=== PATIENT | male | born 1955 | race Caucasian/White ===

== ENCOUNTER 2018-01-19 08:50 | Day surgery (SDC) | payer MEDICARE ==
[2018-01-19 10:43] LABS: Anion Gap 14 mmol/L (10-20); BUN (Urea Nitrogen) 18 mg/dL (8.4-25.7); Calc. Creatinine Clearance 0 mL/min (70-130); Calcium 9.2 mg/dL (7.8-10.44); Carbon Dioxide 30 mmol/L (22-29); Chloride 94 mmol/L (98-107); Estimated GFR-MDRD 63; Glucose 91 mg/dL (70-105); Potassium 3.6 mmol/L (3.5-5.1); Sodium 134 mmol/L (136-145)
[2018-01-19] MEDS ORDERED: Lidocaine 1% w/Epinephrine 1:100K 30 ML VIAL ONE (11:08)
[2018-01-19] MEDS ORDERED: Bacitracin Zinc Ointment 30 gm TUBE ONE (11:08)
[2018-01-19] MEDS ORDERED: Fentanyl 100 MCG/2 ML VIAL ONE (11:48)
[2018-01-19] MEDS ORDERED: Dexamethasone 20 MG/5 ML VIAL ONE (14:38)
[2018-01-19] MEDS ORDERED: PROPOFOL 200 MG/20 ML VIAL ONE (14:38)
[2018-01-19] MEDS ORDERED: Lidocaine 1% PF 5 ML VIAL ONE (14:38)
[2018-01-19] MEDS ORDERED: PHENYLEPHRINE-NS 100 MCG/ML 10 ML SYRINGE ONE (14:38)
[2018-01-19] MEDS ORDERED: Ondansetron HCl/PF 4 MG/2 ML Vial ONE (14:38)
[2018-01-19] MEDS ORDERED: Succinylcholine Chloride 20 MG/ML 10 ml SYRINGE FS ONE (14:38)
--- NOTE | 2018-01-20 13:57 | OP ---
PREOPERATIVE DIAGNOSIS: Left parotid mass. POSTOPERATIVE DIAGNOSIS: Left parotid mass. PROCEDURE PERFORMED: Left superficial parotidectomy with intraoperative facial nerve monitor. SURGEON: Dr. Chris Tyson. WOOL WASHING MACHINE OPERATOR: KUMAR Harrington. ANESTHESIA: General endotracheal anesthesia. ESTIMATED BLOOD LOSS: 50 mL COMPLICATIONS: None. DESCRIPTION OF PROCEDURE: The patient was taken to the operating room and placed supine on the table . General endotracheal anesthesia was obtained by the Anesthesia staff. Tube was secured in the rig ht lower lip. The head was gently tilted to the right to expose the left parotid gland area. Follow ing this, a shoulder roll was placed. Patient was prepped and draped in standard surgical fashion. The intraoperative facial nerve monitors were inserted into the orbicularis theresa and the orbicularis oculi muscles and was tested and remained on throughout the procedure. Following this, a modified Bl air incision was made, staying just anterior to the preauricular crease and extending around the wanda obe approximately 1 cm and then extending onto the neck approximately 2 cm below the angle of the man dible. Following this, subplatysmal flaps were elevated and retracted anteriorly. The mass was note d to be at the inferior margin of the parotid gland on this left side. The inferior division of the facial nerve was identified in the periphery and was dissected in a retrograde fashion until the bin cent inferior branch was identified. Keeping these dissected out, the mass was then removed with its entirety from the superficial load of the parotid gland. Following this, a drain was placed. Wound was irrigated and the wound was closed using 3-0 Monocryl stitches and 4-0 Monocryl stitches. The s kin was then closed using yesenia. The patient tolerated the procedure well.
--- NOTE | 2018-01-20 13:57 | EKG ---
Test Reason : PREOP Blood Pressure : / mmHG Vent. Rate : 065 BPM Atrial Rate : 065 BPM P-R Int : 228 ms QRS Dur : 096 ms QT Int : 464 ms P-R-T Axes : 045 055 097 degrees QTc Int : 482 ms Sinus rhythm with 1st degree A-V block Cannot rule out Anterior infarct , age undetermined Abnormal ECG Confirmed by KIMBERLY LANE ([id number]) on 01/20/2018 1:57:12 PM Referred By: BIANCA Confirmed By:KIMBERLY LANE
== END 2018-01-19 16:38 | disposition home or self-care (01) ==
LOC: SDC 08:50
PROVIDERS: ATTEND Otolaryngology Plastic Surgery within the Head & Neck
PROC: 0CB90ZZ Excision of Left Parotid Gland, Open Approach (ICD-10-PCS; principal; 2018-01-19)
DX: K11.8 Other diseases of salivary glands (principal); I10 Essential (primary) hypertension; E78.00 Pure hypercholesterolemia, unspecified; M06.9 Rheumatoid arthritis, unspecified; F17.210 Nicotine dependence, cigarettes, uncomplicated; Z79.01 Long term (current) use of anticoagulants; Z79.899 Other long term (current) drug therapy
CPT/HCPCS: 80048; 88307; 93005; 93010; J0131; J1100; J2001; J2405; J2704; J3010